=== PATIENT | male | born 1970 | race Caucasian/White ===

== ENCOUNTER → 2018-08-07 | Outpatient (CLI) | payer OTHER ==
--- NOTE | 2018-08-07 12:04 | RADIOLOGY REPORT (SQ) ---
EXAM DESCRIPTION: CHEST PA/LATERAL COMPLETED DATE/TIME: 08/07/2018 11:38 am REASON FOR STUDY: PRODUCTIVE COUGH COMPARISON: None. EXAM PARAMETERS: NUMBER OF VIEWS: two views TECHNIQUE: Digital Frontal and Lateral radiographic views of the chest acquired. RADIATION DOSE: NA LIMITATIONS: none FINDINGS: LUNGS AND PLEURA: No opacities, masses or pneumothorax. No pleural effusion. MEDIASTINUM AND HILAR STRUCTURES: No masses or contour abnormalities. HEART AND VASCULAR STRUCTURES: Heart normal size. No evidence for failure. BONES: No acute findings. HARDWARE: None in the chest. OTHER: No other significant finding. IMPRESSION: No focal airspace disease or other evidence of acute cardiopulmonary process. TECHNICAL DOCUMENTATION: JOB ID: [id number] [employer]- All Rights Reserved Reading location - IP/workstation name: [email or web address]
== END ==
LOC: OD 11:24
PROVIDERS: ATTEND Family Medicine
DX: R05 Cough (principal)
CPT/HCPCS: 71046

== ENCOUNTER 2018-08-08 13:36 | Emergency (ER) | payer OTHER ==
[2018-08-08] MEDS ORDERED: MECLIZINE HCL 25 MG TABLET PO ONE (13:59)
--- NOTE | 2018-08-08 14:00 | ER Document Report ---
ED Medical Screen (RME) - General Chief Complaint: Allergic Reaction Stated Complaint: POSSIBLE ALLERGIC REACTION Time Seen by Provider: 08/08/18 13:52 Notes: 48-year-old male patient long history of hypertension. To new medications, started lisinopril 20 mg daily last night, started a Z-Jose Guadalupe last night for upper respiratory tract infection symptoms for the past 10 days. He woke up this morning feeling dizzy and is noticed closing his eyes or head movements make the symptoms worse. The patient did have some slight nystagmus, I had him look up and down and back and forth rapidly and it made his symptoms much worse. He will be given a dose of meclizine 50mg, and further evaluated in the main ED. I have greeted and performed a rapid initial assessment of this patient. A comprehensive ED assessment and evaluation of the patient, analysis of test results and completion of the medical decision making process will be conducted by additional ED providers. TRAVEL OUTSIDE OF THE [place] IN LAST 30 DAYS: No Past Medical History - Social History Frequency of alcohol use: None Drug Abuse: None - Past Medical History Cardiac Medical History: Reports: Hx Hypertension Neurological Medical History: Reports: Hx Migraine Renal/ Medical History: Denies: Hx Peritoneal Dialysis Physical Exam - Vital signs Vitals: Temp Pulse Resp BP Pulse Ox 97.5 F 101 H 20 135/111 H 96 08/08/18 13:41 08/08/18 13:41 08/08/18 13:41 08/08/18 13:41 08/08/18 13:41 Course - Vital Signs Vital signs: Temp Pulse Resp BP Pulse Ox 97.5 F 101 H 20 135/111 H 96 08/08/18 13:41 08/08/18 13:41 08/08/18 13:41 08/08/18 13:41 08/08/18 13:41 Doctor's Discharge - Discharge Referrals: TYSHAWN VALENZUELA MD [Primary Care Provider] - Follow up as needed
[2018-08-08] MEDS ORDERED: DIPHENHYDRAMINE HCL 50 MG/ML VIAL IM ONE (14:52)
[2018-08-08] MEDS ORDERED: METOCLOPRAMIDE HCL INJ/PF 10 MG/2 ML SDV IM ONE (14:53)
[2018-08-08] MEDS ORDERED: KETOROLAC TROMETHAMINE 60 MG/2 ML SDV IM ONE (14:53)
--- NOTE | 2018-08-08 14:56 | ER Document Report ---
ED General - General Chief Complaint: Allergic Reaction Stated Complaint: POSSIBLE ALLERGIC REACTION Time Seen by Provider: 08/08/18 13:52 Notes: Patient is a 48-year-old male who presents to the emergency department with a chief complaint of lightheadedness. He was seen yesterday by his primary care doctor and was given azithromycin for an upper respiratory infection and started on lisinopril for his blood pressure. He started his lisinopril last night and woke up this morning and felt lightheaded. He has a history of migraines, but t his morning it did not feel like his normal migraine that he has. This afternoon in the emergency department he states his lightheadedness has now progressed to his normal migraine which she describes as being behind his eyes. He has a history of hypertension and dyslipidemia, his dyslipidemia is diet controlled. TRAVEL OUTSIDE OF THE [place] IN LAST 30 DAYS: No - Related Data Allergies/Adverse Reactions: acetaminophen [From Percocet] Allergy (Verified 08/08/18 14:00) atorvastatin [From Lipitor] Allergy (Verified 08/08/18 14:00) ciprofloxacin Allergy (Verified 08/08/18 14:00) codeine Allergy (Verified 08/08/18 14:00) hydrocodone Allergy (Verified 08/08/18 14:00) oxycodone [From Percocet] Allergy (Verified 08/08/18 14:00) Penicillins Allergy (Verified 08/08/18 14:00) Past Medical History - Social History Smoking Status: Unknown if Ever Smoked Frequency of alcohol use: None Drug Abuse: None Family History: Reviewed & Not Pertinent Patient has suicidal ideation: No Patient has homicidal ideation: No - Past Medical History Cardiac Medical History: Reports: Hx Hypertension Neurological Medical History: Reports: Hx Migraine Renal/ Medical History: Denies: Hx Peritoneal Dialysis Review of Systems - Review of Systems Notes: REVIEW OF SYSTEMS: CONSTITUTIONAL : Denies recent illness. Denies recent unintentional weight loss. Denies fever, chills, or sweats. EENT: Denies eye, ear, throat, or mouth pain, discharge, or symptoms. Denies nasal or sinus congestion. CARDIOVASCULAR: Denies chest pain. RESPIRATORY: Denies shortness of breath, cough, congestion, difficulty breathing, or wheezing. GASTROINTESTINAL: Denies nausea, vomiting, and diarrhea. Denies abdominal pain. Denies constipation. GENITOURINARY: Denies difficulty urinating, burning, blood in urine, urgency or frequency. MUSCULOSKELETAL: Denies neck and back pain. Denies joint pain or swelling. SKIN: Denies rash, itchiness, or lesions HEMATOLOGIC : Denies easy bruising or bleeding. LYMPHATIC: Denies swollen, painful, enlarged glands. NEUROLOGICAL: See HPI PSYCHIATRIC: Denies stress, anxiety, alteration in sleep patterns, or depression. All other systems reviewed and negative. Physical Exam - Vital signs Vitals: Temp Pulse Resp BP Pulse Ox 97.5 F 101 H 20 135/111 H 96 08/08/18 13:41 08/08/18 13:41 08/08/18 13:41 08/08/18 13:41 08/08/18 13:41 - Notes Notes: PHYSICAL EXAMINATION: GENERAL: Appears well, healthy, well-nourished, no acute distress. HEAD: Normocephalic, atraumatic. EYES: PERRL, conjunctiva normal, all extraocular movements intact, sclera nonicteric ENT: Moist mucous membranes. NECK: Supple, no noticeable swelling, redness, rash. Normal range of motion. LUNGS: Equal breath sounds bilaterally and clear to auscultation. No wheezes rales or rhonchi. CARDIOVASCULAR: S1-S2, regular rate, regular rhythm. Radial pulses 2+, normal. ABDOMEN: Normoactive bowel sounds. Soft, nontender, no guarding, no rebound tenderness, and no masses palpated. EXTREMITIES: Normal strength and range of motion, no pitting or edema. No cyanosis. NEUROLOGICAL: Moves all extremities upon command. Strength 5/5 in all extremities. PSYCH: Normal mood, normal affect. SKIN: Warm, dry. No rash, lesions, ulcerations noted. Normal skin turgor. Course - Re-evaluation Re-evalutation: 08/08/18 15:02 Since patient has a history of migraines, and he states his migraine feels the same as his normal migraines at this time, he will be treated with Reglan, Benadryl, and Toradol for headache control. I do not suspect he has an intracranial hemorrhage as he does not have neurological deficits. A BMP will be drawn to check his labs to make sure he is able to be started on a new hypertension medication. 08/08/18 17:03 His BMP is unremarkable. His potassium is 3.8. I have reevaluated the patient and he said his headache is better, but is still there. I suspect his headache is most likely secondary to his blood pressure. I will give him a dose of hydrochlorothiazide here in the emergency department. I have instructed him to start taking his hydrochlorothiazide in the morning starting tomorrow. Verbal discharge instructions were given to the patient. He verbalized understanding, he is stable for discharge. - Vital Signs Vital signs: Temp Pulse Resp BP Pulse Ox 97.5 F 101 H 20 135/111 H 96 08/08/18 13:41 08/08/18 13:41 08/08/18 13:41 08/08/18 13:41 08/08/18 13:41 - Laboratory Result Diagrams: 08/08/18 15:34 Discharge - Discharge Clinical Impression: Essential hypertension, Dizziness Migraine Qualifiers: Migraine type: without aura Status migrainosus presence: with status migrainosus Intractability: not intractable Qualified Code(s): G43.001 - Migraine without aura, not intractable, with status migrainosus Condition: Stable Disposition: HOME, SELF-CARE Additional Instructions: You were seen in the emergency department today for dizziness, migraine, and high blood pressure. Please stop taking your lisinopril. You have been given a dose of hydrochlorothiazide, a blood pressure medication. Please start taking this medication every morning. You were also treated for a migraine headache. Taking your new blood pressure medication may help with your headache. Please follow-up with your primary care doctor in the next few days. If you pass out, continue to have dizziness, or have any symptoms that are worrisome to you, please return to the emergency. Prescriptions: Hydrochlorothiazide 12.5 mg PO DAILY #30 tablet Referrals: TYSHAWN VALENZUELA MD [Primary Care Provider] - Follow up as needed
[2018-08-08 15:59] LABS: ANION GAP 9 (5-19); BLOOD UREA NITROGEN 9 mg/dL (7-20); CALCIUM 9.2 mg/dL (8.4-10.2); CARBON DIOXIDE 24 mmol/L (22-30); CHLORIDE 105 mmol/L (98-107); GLUCOSE 99 mg/dL (75-110); POTASSIUM 3.8 mmol/L (3.6-5.0); SODIUM 138.3 mmol/L (137-145)
[2018-08-08] MEDS ORDERED: HYDROCHLOROTHIAZIDE 12.5 MG TABLET PO ONE (16:53)
[2018-08-08 17:06] VITALS: BP 135/105
== END 2018-08-08 17:06 | disposition home or self-care (01) ==
LOC: ER 13:36
DX: T78.40XA Allergy, unspecified, initial encounter (principal); G43.001 Migraine without aura, not intractable, with status migrainosus; R42 Dizziness and giddiness; X58.XXXA Exposure to other specified factors, initial encounter; I10 Essential (primary) hypertension; Z88.6 Allergy status to analgesic agent; Z88.3 Allergy status to other anti-infective agents; Z88.0 Allergy status to penicillin
CPT/HCPCS: 99284; 96372; 36415; 80048; J1200; J1885; J2765

== ENCOUNTER → 2018-10-08 | Outpatient (CLI) | payer OTHER ==
--- NOTE | 2018-10-08 08:51 | RADIOLOGY REPORT (SQ) ---
EXAM DESCRIPTION: U/S RETROPERITON (RENAL/AORTA) COMPLETED DATE/TIME: 10/08/2018 8:17 am REASON FOR STUDY: RENAL PAIN (N23) N23 UNSPECIFIED RENAL COLIC COMPARISON: None. TECHNIQUE: Dynamic and static grayscale images acquired of the kidneys and bladder and recorded on P ACS. Additional selected color Doppler and spectral images recorded. LIMITATIONS: None. FINDINGS: RIGHT KIDNEY: Normal size. Normal echogenicity. No solid or suspicious masses. No hydronep hrosis. No calcifications. LEFT KIDNEY: Normal size. Normal echogenicity. No solid or suspicious masses. No hydronephrosis. No calcifications. BLADDER: No masses. OTHER FINDINGS: No other significant finding. IMPRESSION: NORMAL RENAL AND BLADDER ULTRASOUND. TECHNICAL DOCUMENTATION: JOB ID: [id number] [employer]- All Rights Reserved Reading location - IP/workstation name: [email or web address]
== END ==
LOC: RAD 07:26
PROVIDERS: ATTEND Family Medicine Geriatric Medicine
DX: N23 Unspecified renal colic (principal)
CPT/HCPCS: 76770

== ENCOUNTER → 2018-12-09 | Outpatient (CLI) | payer OTHER ==
[2018-12-09 16:53] LABS: ALANINE AMINOTRANSFERASE 31 U/L (21-72); ALBUMIN 4.6 g/dL (3.5-5.0); ALKALINE PHOSPHATASE 70 U/L (38-126); ANION GAP 11 (5-19); ASPARTATE AMINO TRANSFERASE 28 U/L (17-59); BILIRUBIN,DIRECT 0.4 mg/dL (0.0-0.4); BILIRUBIN,TOTAL 1.8 mg/dL (0.2-1.3); BLOOD UREA NITROGEN 18 mg/dL (7-20); CARBON DIOXIDE 25 mmol/L (22-30); CHLORIDE 102 mmol/L (98-107); CHOLESTEROL 261.33 mg/dL (0-200); GLUCOSE 83 mg/dL (75-110); POTASSIUM 3.9 mmol/L (3.6-5.0); SODIUM 137.6 mmol/L (137-145); TRIGLYCERIDES 273 mg/dL (<150)
[2018-12-09 17:04] LABS: DIRECT LDL 170 mg/dL (<100)
[2018-12-09 17:06] LABS: VLDL CHOLESTEROL 54.6 mg/dL (10-31)
== END ==
LOC: OD 15:14
PROVIDERS: ATTEND Family Medicine
DX: Z13.1 Encounter for screening for diabetes mellitus (principal); Z13.220 Encounter for screening for lipoid disorders
CPT/HCPCS: 36415; 80053; 80061

== ENCOUNTER → 2019-07-05 | Outpatient (CLI) | payer OTHER ==
--- NOTE | 2019-07-05 14:22 | RADIOLOGY REPORT (SQ) ---
EXAM DESCRIPTION: MRI HEAD COMBO COMPLETED DATE/TIME: 07/05/2019 1:40 pm REASON FOR STUDY: (G43.919)MIGRAINE, UNSP, INTRACTABLE, WITHOUT STATUS MIGRAINOSUS G43.919 MIGRAINE , UNSP, INTRACTABLE, WITHOUT STATUS MIGRAINO COMPARISON: None. TECHNIQUE: Multiplanar imaging includes noncontrasted T1, T2, FLAIR, diffusion with ADC map and post gadolinium contrast T1 sequences. Images stored on PACS. CONTRAST TYPE AND DOSE: 15 mL Dotarem. RENAL FUNCTION: Not indicated. ACR Type II contrast agent associated with few, if any, unconfounded cases of NSF LIMITATIONS: None. FINDINGS: ANATOMY: No anomalies. Normal vascular flow voids. Pituitary fossa normal. CSF SPACES: Normal in size and contour. No hemorrhage. CEREBRUM: Sulci and gyri normal in size and contour. Normal white matter signal on FLAIR imaging. No evidence of hemorrhage, mass, or extraaxial fluid collection. No abnormal enhancement post contrast. POSTERIOR FOSSA: Punctate focus of increased FLAIR/ T2 signal without diffusion signal abnormality in the right cerebellar hemisphere axial image 8. There is an adjacent small venous anomaly, this like ly represents benign gliosis of doubtful clinical significance. No acute hemorrhage. No edema, masses , or mass effect. Internal auditory canals, cerebellopontine angles, mastoids normal. No enhancing le sions. No abnormal enhancement post contrast. DIFFUSION IMAGING: Negative for acute or subacute infarction. ORBITS: No masses. Globes normal. PARANASAL SINUSES: No fluid levels. Mucosa normal. OTHER: No other significant finding. IMPRESSION: ESSENTIALLY NORMAL MRI OF THE BRAIN WITHOUT AND WITH INTRAVENOUS GADOLINIUM CONTRAST. EVIDENCE OF ACUTE STROKE: NO. TECHNICAL DOCUMENTATION: JOB ID: [id number] [employer]- All Rights Reserved Reading location - IP/workstation name: [email or web address]
== END ==
LOC: RAD 12:26
PROVIDERS: ATTEND Family Medicine
DX: G43.919 Migraine, unspecified, intractable, without status migrainosus (principal)
CPT/HCPCS: 82565; 70553; A9576

== ENCOUNTER → 2020-01-14 | Outpatient (CLI) | payer OTHER ==
--- NOTE | 2020-01-14 14:44 | RADIOLOGY REPORT (SQ) ---
EXAM DESCRIPTION: U/S SCROTUM W/O DOPPLER IMAGES COMPLETED DATE/TIME: 01/14/2020 2:15 pm REASON FOR STUDY: TESTICULAR CYST (N44.2) N44.2 BENIGN CYST OF TESTIS COMPARISON: None. TECHNIQUE: Static and realtime chambers scale imaging of the scrotum and testes. Selected color Doppler and spectral images recorded to document blood flow. LIMITATIONS: None. FINDINGS: RIGHT: TESTICLE: The right testicle measures 4.2 x 2.4 x 2.1 cm. The echotexture of the testicular parenchy ma is homogeneous and on Doppler there is intact arterial inflow and venous outflow within it. There is no testicular mass. EPIDIDYMIS: The epididymis measures 12 x 10 x 7 mm. There is cyst in the epididymis that measures 6 x 5 x 4 mm. On Doppler there is no evidence of epididymal hyperemia. HYDROCELE OR VARICOCELE: No. HERNIA OR EXTRA-TESTICULAR MASS: No. OTHER: No other finding. LEFT: TESTICLE: The right testicle measures 4.5 x 3.2 x 1.9 cm. The echotexture of the testicular parenchy ma is homogeneous and on Doppler there is intact arterial inflow and venous outflow within it. There is no testicular mass. EPIDIDYMIS: The epididymis measures 17 x 14 x 10 mm. There are several cysts in the epididymis the l argest of which measures 8 x 6 x 5 mm. On Doppler there is no evidence of epididymal hyperemia. HYDROCELE OR VARICOCELE: No. HERNIA OR EXTRA-TESTICULAR MASS: No. OTHER: No other finding. IMPRESSION: 1. No testicular mass or torsion. 2. No epididymitis. 3. No hydrocele or varicocele. 4. Epididymal cysts. TECHNICAL DOCUMENTATION: JOB ID: [id number] [employer]- All Rights Reserved Reading location - IP/workstation name: [email or web address]
== END ==
LOC: RAD 12:44
PROVIDERS: ATTEND Family Medicine
DX: N44.2 Benign cyst of testis (principal); N50.3 Cyst of epididymis
CPT/HCPCS: 76870